=== PATIENT | female | born 1935 | race Caucasian/White ===

== ENCOUNTER 2019-02-09 05:40 | Inpatient (IN) ==
--- NOTE | 2019-01-25 10:27 | PAT Medication Instructions ---
Medication Instructions Date of Service January 25, 2019 Home Medications amlodipine [Norvasc] 5 mg PO QAM aspirin 325 mg PO QAM ergocalciferol (vitamin D2) [Vitamin D2] 50,000 unit PO MONTHLY isosorbide mononitrate 30 mg PO QAM metoprolol tartrate 50 mg PO HS metoprolol tartrate 100 mg PO QAM pantoprazole 40 mg PO QAM pravastatin 40 mg PO HS Continue as directed ergocalciferol (vitamin D2) [Vitamin D2] 50,000 unit PO MONTHLY ASK your prescriber and surgeon aspirin 325 mg PO QAM Take morning of surgery With a small sip of water, OTHERWISE NOTHING TO EAT OR DRINK AFTER MIDNIGHT: amlodipine [Norvasc] 5 mg PO QAM isosorbide mononitrate 30 mg PO QAM metoprolol tartrate 100 mg PO QAM pantoprazole 40 mg PO QAM Take evening before surgery metoprolol tartrate 50 mg PO HS pravastatin 40 mg PO HS Other Notes If you have any questions please call us at [phone] or [phone] or [phone] or [phone]
--- NOTE | 2019-01-26 10:01 | Anesthesiology Consultation ---
Date of Service January 26, 2019 Assessment & Plan (1) Encounter for pre-operative examination: - Awaiting review preop testing (labs, CXR). - Awaiting most recent cardiology office visit note (Dr. Mondragon). - ASA 325mg instructions per surgeon/cardiology. Chart Review Chart Review: Pending: Refer to Additional Notes / Consult section and Patient seen in Pre Admission Testing Consults Requested awaiting cardiac note Teaching & Discussion Pre-Anesthesia Teaching/Discussion Notes: Instructed NPO after midnight before surgery,except medications with 15 cc of water. Medication instructions provided according to the PAT guidelines. History Surgery Operation Date: 02/09/19 09:05 Proposed Procedures p C5-C6 Anterior Cervical Discectomy Fusion, C4 Corpectomy, Spinal Cord Monitoring - Dwayne Martines, Height/Weight Height: 5 ft 2 in Weight: 52.9 kg Allergies Allergy/AdvReac Type Severity Reaction Status Date / Time ampicillin Allergy Severe Hives Verified 01/25/19 08:44 ciprofloxacin [From Cipro] Allergy Severe Hives Verified 01/25/19 08:44 simvastatin [From Zocor] AdvReac Intermediate muscle Verified 01/25/19 08:44 rigidity/pain Medications Home Medications Medication Instructions Recorded Confirmed Last Taken amlodipine [Norvasc] 5 mg PO QAM 01/25/19 01/25/19 Unknown aspirin 325 mg PO QAM 01/25/19 01/25/19 Unknown ergocalciferol (vitamin D2) 50,000 unit PO MONTHLY 01/25/19 01/25/19 Unknown [Vitamin D2] isosorbide mononitrate 30 mg PO QAM 01/25/19 01/25/19 Unknown metoprolol tartrate 50 mg PO HS 01/25/19 01/25/19 Unknown metoprolol tartrate 100 mg PO QAM 01/25/19 01/25/19 Unknown pantoprazole 40 mg PO QAM 01/25/19 01/25/19 Unknown pravastatin 40 mg PO HS 01/25/19 01/25/19 Unknown Past Medical History Medical History Aortic stenosis "mild" per 11/2018 ECHO (MATY 1.8cm2, MG 11mmhg) CAD (coronary artery disease) stent x 1 to RCA (1997) Chronic neck pain Degenerative disc disease Diverticular disease GERD (gastroesophageal reflux disease) controlled Hearing deficit Hyperlipidemia Hypertension Myocardial Infarction 1997 Osteoarthritis Exercise / Class Metabolic Activity III < 4 Walking/Shop/Light housework Past Family History Family History Sister Family hx of colon cancer Past Surgical History Surgical History History of adenoidectomy History of appendectomy History of bilateral tubal ligation History of cardiac cath 1998= STENT x 1 History of cholecystectomy History of colonoscopy History of esophagogastroduodenoscopy (EGD) History of tonsillectomy Hx of lumpectomy bengin Left breast Past Anesthesia History No Hx of Anesthesia Complications and No Family Hx of Anesthesia Complications History of PONV No Hx of PONV and No Hx of Motion Sickness Social History Smoking Status: Former smoker tobacco type: cigarettes Do You Dip or Chew Tobacco: No Smoking End Date: Quit 1981 Hx Alcohol Use: Yes Alcohol type: wine alcohol intake frequency: 0-2 drinks per day (typically 1-2 glasses wine per day (occasional 3 drinks per day)) Hx Substance Use: No substance use type: does not use Review of Systems Reflux controlled. Patient denies chest pain, shortness of breath, cough, wheezing, palpitations. Physical Exam Vital Signs VITALS BP 156/72 P 68 TEMP 97.8 SP02 95%RA RESP 18 PHYSICAL Midly decreased cervical extension 2/2 cervicalgia Full TMJ range of motion. TMD 3 finger breaths Mallampati Score 2 Dentition: missing molars, caps on sides Lungs: diminished breath sounds in upper lung regions Cardiac: regular rate and rhythm, I-II/ systolic murmur Spine: normal Carotid arteries: negative bruit Extremities: no edema Testing Laboratory Results 01/26/19 10:14 01/26/19 10:14 PT 10.8 Seconds (9.0-12.0) 01/26/19 10:14 INR 1.1 (0.9-1.1) 01/26/19 10:14 APTT 26.3 Seconds (21.0-31.0) 01/26/19 10:14 Blood Type A Positive 01/26/19 10:14 Antibody Screen NEGATIVE 01/26/19 10:14 Electrocardiogram Date: 03/12/18 NSR at 80bpm. Possible LAE. Old inferior wall PR. Chest X-Ray Date: 01/26/19 Findings: + NAD (hyperinflation, suggestive of emphysema) Echocardiogram Date: 12/07/18 EF 60%. Grade I DD. Severe LAD. Moderate RAD. Moderate AR. Mild aortic stenosis (MATY 1.8cm2, MG 11mmhg). Moderate MR/TR. Moderately elevated PAP. Mild SC.
--- NOTE | 2019-01-26 10:52 | XRay Report ---
XR chest Pre-admission PA/Lat CLINICAL HISTORY: 83 years-old Female presenting with preoperative assessment. TECHNIQUE: PA and lateral views of the chest were obtained. COMPARISON: None. FINDINGS: Cardiomediastinal silhouette normal. Lungs are hyperinflated. No focal opacity. No pleural effusion o r pneumothorax. Osteopenia. Osteoporotic endplate deformities suspected. Upper abdomen normal. IMPRESSION: 1. Findings suggest emphysema. No focal infiltrate to suggest pneumonia. 2. Osteopenia and osteoporosis suspected. Electronically signed by: Rylan Bernstein M.D. 01/26/2019 10:50 AM
[2019-01-26 12:06] LABS: Basophils # (auto) 0.07 K/uL (0-0.2); Basophils % (auto) 0.6 %; Eosinophils # (auto) 0.08 K/uL (0-0.5); Eosinophils % (auto) 0.7 %; Hematocrit (blood only) 36.9 % (37-47); Hemoglobin 12.5 g/dL (12.0-16.0); Immature Granulocytes # (auto) 0.02 K/uL (0.00-0.02); Immature Granulocytes % (auto) 0.2 %; Lymphocytes % (auto) 20.4 %; Mean Corpuscular Hemoglobin 32.6 pg (25-34); Mean Corpuscular Hgb Conc 33.9 g/dL (32-36); Mean Corpuscular Volume 96.3 fL (80-100); Mean Platelet Volume 10.9 fL (7.4-10.4); Monocytes # (auto) 1.24 K/uL (0.11-0.59); Neutrophils # (auto) 7.56 K/uL (1.4-6.5); Neutrophils % (auto) 67.1 %; Platelet Count 312 K/uL (130-400); RDW Coefficient of Variation 14.5 % (11.5-14.5); RDW Standard Deviation 51.4 fL (36.4-46.3); Red Blood Count 3.83 M/uL (4.2-5.4); White Blood Count 11.27 K/uL (4.8-10.8)
[2019-01-26 12:16] LABS: BUN Creatinine Ratio 10.5 (10-20); Calcium 9.9 mg/dl (8.5-10.1); Creatinine Clr Calc Pharmacy 41.5 ml/min; Est GFR (African American) 75.5; Est GFR (Non-African American) 65.2; Potassium 4.2 mmol/L (3.5-5.1)
[2019-01-26 12:18] LABS: INR 1.1 (0.9-1.1); Partial Thromboplastin Time 26.3 Seconds (21.0-31.0); Prothrombin Time 10.8 Seconds (9.0-12.0)
[2019-02-09] MEDS ORDERED: CeleBREX 200 MG CAP PO SCH (06:00)
[2019-02-09] MEDS ORDERED: GABAPENTIN 300 MG CAP PO SCH (06:00)
[2019-02-09] MEDS ORDERED: LR 15ML/HR IV SCH (06:00)
[2019-02-09] MEDS ORDERED: ACETAMINOPHEN 500 MG TAB PO SCH (06:00)
[2019-02-09] MEDS ORDERED: CLINDAMYCIN 600 MG/54 ML BAG IV SCH (06:00)
[2019-02-09] MEDS ORDERED: dexAMETHasone 4 MG TAB PO SCH (06:00)
[2019-02-09] MEDS ORDERED: HYDROmorphone INJ 2 MG/ML SYR/VIAL ONE ×2 (06:46→10:01)
[2019-02-09] MEDS ORDERED: fentaNYL citrate 100 MCG/2 ML VIAL ONE ×4 (06:46→10:12)
[2019-02-09] MEDS ORDERED: PROPOFOL IV EMULSION 10 MG/ML 100 ML VIAL IV ONE (06:54)
[2019-02-09] MEDS ORDERED: BACITRACIN INJ 50,000 UNIT VIAL ONE (07:03)
--- NOTE | 2019-02-09 07:25 | History & Physical Bridge Note ---
Date of Service February 09, 2019 History & Physical Bridge Note I have examined the patient, reviewed the History & Physical and in the interval since the performance of the History & Physical I have noted the following changes of clinical significance: no changes noted
--- NOTE | 2019-02-09 07:26 | History & Physical Report ---
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 After failing extensive course of nonoperative care and having decline in neurologic status is electing to undergo the above-mentioned procedure. Allergies Allergy/AdvReac Type Severity Reaction Status Date / Time ampicillin Allergy Severe Hives Verified 02/09/19 06:20 ciprofloxacin [From Cipro] Allergy Severe Hives Verified 02/09/19 06:20 simvastatin [From Zocor] AdvReac Intermediate muscle Verified 02/09/19 06:20 rigidity/pain Home Medications Home Medications Medication Instructions Recorded Confirmed Type amlodipine [Norvasc] 5 mg PO QAM 01/25/19 02/09/19 History aspirin 325 mg PO QAM 01/25/19 02/09/19 History ergocalciferol (vitamin D2) 50,000 unit PO MONTHLY 01/25/19 02/09/19 History [Vitamin D2] isosorbide mononitrate 30 mg PO QAM 01/25/19 02/09/19 History metoprolol tartrate 50 mg PO HS 01/25/19 02/09/19 History metoprolol tartrate 100 mg PO QAM 01/25/19 02/09/19 History pantoprazole 40 mg PO QAM 01/25/19 02/09/19 History pravastatin 40 mg PO HS 01/25/19 02/09/19 History Past Med/Surg History Family History Sister Family hx of colon cancer Social History Preferred Language: Lithuanian Communication Ability: Effective Aircraft Mechanic Required: No Beliefs That Will Affect Care: None Current Living Situation: Spouse Other Information That Helps Us Care for You: No Feels Safe at Home: Yes Safety Concerns: Feels Safe At This Time Smoking Status: Former smoker Tobacco Type: cigarettes ; Do You Dip or Chew Tobacco: No ; Smoking End Date: Quit 1981 ; Second Hand Exposure: Yes (hx) ; Tobacco Cessation Education Requested by Patient: No Hx Alcohol Use: Yes Alcohol type: wine Hx Substance Use: No Physical Exam Physical Exam: Patient is alert and oriented neurologically intact. Results & Data Vital Signs (Past 12 Hours) Vital Signs Temp Pulse Resp BP Pulse Ox 02/09/19 06:24 36.6 C 70 20 157/75 H 96
[2019-02-09] MEDS ORDERED: PROMETHAZINE HCL 12.5 MG in SODIUM CHLORIDE 0.9% 50 ML IV PRN ×2 (08:41→12:09)
[2019-02-09] MEDS ORDERED: FLUMAZENIL 0.1 MG/1 ML 10 ML VIAL IV PRN (08:41)
[2019-02-09] MEDS ORDERED: ePHEDrine sulfate 50 MG/ML AMP IV PRN (08:41)
[2019-02-09] MEDS ORDERED: NALOXONE HCL 0.4 MG/1 ML VIAL/CARP IV PRN ×2 (08:41→12:09)
[2019-02-09] MEDS ORDERED: ONDANSETRON INJ 2 MG/ML 2 ML VIAL IV PRN ×2 (08:41→12:09)
[2019-02-09] MEDS ORDERED: ATROPINE SULFATE 0.1 MG/ML 10ML SYR IV PRN (08:41)
[2019-02-09] MEDS ORDERED: LABETALOL HCL IV 5 MG/ML 20ML IV PRN (08:41)
[2019-02-09] MEDS ORDERED: ESMOLOL HCL INJ 10 MG/ML 10ML VIAL IV ONE (09:20)
[2019-02-09] MEDS ORDERED: PHENYLEPHRINE 100MCG/ML 5ML SYR ONE (09:20)
[2019-02-09] MEDS ORDERED: PROPOFOL IV EMULSION 10 MG/ML 20 ML VIAL IV ONE (09:20)
[2019-02-09] MEDS ORDERED: ePHEDrine sulfate 50 MG/ML SYR ONE (09:20)
[2019-02-09] MEDS ORDERED: SUCCINYLCHOLINE 100MG/5ML SYR ONE (09:20)
[2019-02-09] MEDS ORDERED: ONDANSETRON INJ 2 MG/ML 2 ML VIAL ONE (09:20)
[2019-02-09] MEDS ORDERED: LARYING-O-JET KIT (LTA) ONE (09:20)
[2019-02-09] MEDS ORDERED: LIDOCAINE HCL 2% 2 ML VIAL/AMP(20MG/ML) INFIL ONE (09:20)
[2019-02-09] MEDS ORDERED: ROCURONIUM BROMIDE 10 MG/ML 5 ML VIAL ONE (09:20)
[2019-02-09] MEDS ORDERED: NEOSTIGMINE METHYLSULFATE 5 MG/5 ML SYR ONE (09:20)
[2019-02-09] MEDS ORDERED: DEXAMETHASONE SOD INJ 4 MG/ML VIAL ONE (09:20)
[2019-02-09] MEDS ORDERED: GLYCOPYRROLATE 0.2 MG/ML VIAL ONE (09:20)
--- NOTE | 2019-02-09 09:55 | Operative Report ---
Post Operative Report Pre & Post Diagnosis Operation Date: 02/09/19 07:45 Pre-Op Diagnosis: Cervical spinal stenosis with myelopathy Post-Op Diagnosis: Same I identified the patient and participated in the time-out.: Yes Procedure Operation Date: 02/09/19 07:45 Actual Procedures #1 anterior cervical corpectomy with bilateral foraminotomies C4. #2 anterior cervical discectomy with bilateral foraminotomies C5-6. #3 anterior cervical arthrodesis C3-C5 and C5-C6. #4 placement of peek cage 25 mm in height C3-C5 and 7 mm in height at C5-C6. #5 placement locally harvested morselized autograft combined with DBM and interbody cages. #6 application of cobb plate and screws from C3-C6. Surgeon Dwayne Martines, Polygraph Examiner Vera Petersen Estimated Blood Loss 150 Findings Consistent with Post-Op Diagnosis Specimens None Indications This is a 83-year-old female who presents with above-mentioned diagnosis with her continuing neurologic decline elected to undergo the above-mentioned procedure. Description of Procedure Patient was met with identified and informed consent obtained. Patient was then taken to the operative suite underwent ablation placed in supine position the Curtis table with head Swanson head porter baggage. All bony prominences well-padded eyes inspected to ensure no external pressure placed upon. This point the anterior cervical spine was prepped and draped in a sterile fashion. Sharp dissection with the assistance of bipolar electrocautery was performed on August exposing the anterior cervical spine from C3-C6. Verified my position with fluoroscopy. A complete discectomy of C3-4 was performed out to the uncovertebral joints bilaterally followed by see 4 5. [place] distracting pins were then placed in C3 and C5 distract across the C4 vertebral body. A complete corpectomy was then performed including removal of all posterior annular fibers and longitudinal ligament and bilateral foraminotomies. Endplates were then burred to subcortical bleeding bone and a 25 mm peek cage filled with local autograft and DBM tapped in position. Then proceeded to C5-6. Again complete discectomy performed out to the uncovertebral joints bilaterally. [place] distracting pins again utilized. Perform bilateral foraminotomies and endplates were then burred to subcortical being bone and a 7 mm peek cage filled with local autograft and DBM tapped in position. Distraction apparatus was removed all anterior osteophytes burred with smooth cortical surface and a cobb plate and screws applied with the assistance of fluoroscopy. Incision was then cut was irrigated explored to ensure no demonstrate surrounding structures remaining bleeding. 10 round GREG drain inserted. The incision was then closed with 2 Vicryl in the fashion of 4 Monocryl for final skin closure. Steri-Strip sterile dressings placed. Patient awakened taken to PACU stable condition. Please note spinal cord monitoring was utilized that the procedure no changes noted. Lastly Vera Petersen was present on the entire procedure involved the patient positioning complex portions of the surgery and final skin closure. I attest to the content of the Intraoperative Record and any orders documented therein. Any exceptions are noted below.
[2019-02-09] MEDS ORDERED: FLOSEAL HEMOSTATIC MATRIX 10ML TOP ONE (09:58)
--- NOTE | 2019-02-09 10:50 | Fluoroscopy Report ---
FL cervical 2-3V CLINICAL HISTORY: ACDF C5-C6 AND CORPECTOMY C4 COMPARISON STUDY: None FLUOROSCOPY TIME: 8 seconds NUMBER OF FLUOROSCOPIC IMAGES: 2 FINDINGS: Findings consistent with anterior cervical fusion and corpectomy identified from C3 through C6. Alignment appears anatomic. IMPRESSION: Image intensifier support for an anterior cervical fusion and corpectomy The above report was generated using voice recognition software. It may contain grammatical, syntax or spelling errors. Electronically signed by: Sim Gruber M.D. 02/09/2019 10:49 AM
--- NOTE | 2019-02-09 11:12 | Anesthesiology Progress Note ---
Date of Service February 09, 2019 Anesthesia Post Procedure Vital Signs Vital Signs: Temp Pulse Pulse Resp BP Pulse Ox 02/09/19 11:05 36.4 C L 63 13 139/61 98 02/09/19 10:55 36.6 C 70 18 141/70 H 98 02/09/19 10:45 36.2 C L 73 21 149/69 H 98 02/09/19 10:35 36.2 C L 73 18 157/78 H 98 02/09/19 10:25 36.2 C L 75 14 163/74 H 99 02/09/19 10:15 36.2 C L 80 17 163/74 H 98 02/09/19 10:09 36.2 C L 81 16 146/83 H 97 02/09/19 06:24 36.6 C 70 20 157/75 H 96 Pain Intensity Lower Neck: Pain Intensity: 0 Transfer of Care Handoff Completed per policy Notes Mental Status: alert / awake / arousable Patient Amnestic to Procedure: Yes Nausea / Vomiting: adequately controlled Pain: adequately controlled Airway Patency, RR, SpO2: stable & adequate BP & HR: stable & adequate Hydration State: stable & adequate Anesthetic Complications: no major complications apparent
[2019-02-09] MEDS: fentaNYL citrate 100 MCG/2 ML VIAL IV PRN ×2 (11:21→11:26)
[2019-02-09] MEDS ORDERED: OXYCODONE HCL IR 5 MG TAB (IMMEDIATE RELEASE) PO PRN (12:09)
[2019-02-09] MEDS ORDERED: DO NOT ADMINISTER FLU VACCINE PRN (12:09)
[2019-02-09] MEDS ORDERED: LORazepam 0.5 MG TAB PO PRN (12:09)
[2019-02-09] MEDS ORDERED: ONDANSETRON 4 MG OD TAB PO PRN (12:09)
[2019-02-09] MEDS ORDERED: ACETAMINOPHEN 1,000 MG/100 ML VIAL IV PRN (12:09)
[2019-02-09] MEDS ORDERED: ACETAMINOPHEN 500 MG TAB PO PRN (12:09)
[2019-02-09] MEDS ORDERED: LORazepam 0.5 MG/1 ML VIAL IV PRN (12:09)
[2019-02-09] MEDS ORDERED: SOD PHOSPHATE/SOD BIPHOSPHATE ENEMA 132 ML BTL PR PRN (12:09)
[2019-02-09] MEDS ORDERED: HYDROmorphone INJ 0.5 MG/0.5 ML SYR IV PRN (12:09)
[2019-02-09] MEDS ORDERED: DEXAMETHASONE SOD PHOSPHATE 8 MG in SYRINGE 0 ML IV PRN (12:09)
[2019-02-09] MEDS ORDERED: RACEPINEPHRINE 2.25% NEBU SOLN 0.5 ML VIAL INH PRN (12:09)
[2019-02-09] MEDS ORDERED: MAGNESIUM HYDROXIDE SUSP 30 ML UDC PO PRN (12:09)
[2019-02-09] MEDS ORDERED: HYDROmorphone INJ 1 MG/ML SYRINGE IV PRN (12:09)
[2019-02-09] MEDS ORDERED: ALUMINUM/MAGNESIUM SUSP 30 ML UDC PO PRN (12:09)
[2019-02-09] MEDS ORDERED: METOCLOPRAMIDE HCL INJ 5 MG/ML 2 ML VIAL IV PRN (12:09)
[2019-02-09] MEDS ORDERED: FAMOTIDINE 20 MG TAB PO PRN (12:09)
[2019-02-09] MEDS ORDERED: DO NOT ADMINISTER PNEUMOCOCCAL VACCINE PRN (12:09)
[2019-02-09] MEDS ORDERED: TRAMADOL HCL 50 MG TABLET PO PRN (12:09)
--- NOTE | 2019-02-09 13:36 | Consultation ---
Date of Consultation February 09, 2019 Assessment & Plan (1) S/P cervical spinal fusion: Post op day# 0 S/P ACDF by Dr Martines EBL #150ml Post op without dysphagia -pain management per ortho -wound management per ortho -PT/OT as appropriate -DVT prophylaxis per ortho -monitor H&H for acute blood loss anemia; pre-op Hb.5 (2) CAD (coronary artery disease): S/P stent to RCA in 1997. Follows with Dr Mondragon in [place] No CP, SOB -Continue aspirin, metoprolol, isosorbide, statin (3) Hypertension: Stable -Continue metoprolol, amlodipine (4) Hyperlipidemia: -Continue statin (5) GERD (gastroesophageal reflux disease): -Continue PPI DVT Prophylaxis -SCDs per ortho Follows with Dr Sim Acosta in [place] for routine care Pt was seen and care coordinated with Dr Ocasio See addendum Pt will be followed by Dr Buitrago starting 02/10/19 Thank you for this consultation. We will follow the patient with you during their hospital stay. You can reach a member of the [facility] Hospitalist Team 14/10 via pager @ [phone]. Supervising Physician Co-Signing Physician Notes Attending addendum: The patient was seen and examined in medical floor She is 83 years old with history of CAD status post stent denies centimeters, hypertension, hyperlipidemia and GERD underwent ACDF by Dr. 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 Post op pt reports some mild neck pain. Denies difficulty or pain swallowing saliva. Reports still has some paresthesias bilateral hands/fingers. Denies nausea or vomiting. Denies fever/chills, diaphoresis, MAS, dizziness, vision changes, CP, SOB, palpitations, cough, choking, abdominal pain, extremity weakness, extremity edema, rashes, urinary symptoms. Allergies Allergy/AdvReac Type Severity Reaction Status Date / Time ampicillin Allergy Severe Hives Verified 02/09/19 06:20 ciprofloxacin [From Cipro] Allergy Severe Hives Verified 02/09/19 06:20 simvastatin [From Zocor] AdvReac Intermediate muscle Verified 02/09/19 06:20 rigidity/pain Home Medications Home Medications Medication Instructions Recorded Confirmed Type amlodipine [Norvasc] 5 mg PO QAM 01/25/19 02/09/19 History aspirin 325 mg PO QAM 01/25/19 02/09/19 History ergocalciferol (vitamin D2) 50,000 unit PO MONTHLY 01/25/19 02/09/19 History [Vitamin D2] isosorbide mononitrate 30 mg PO QAM 01/25/19 02/09/19 History metoprolol tartrate 50 mg PO HS 01/25/19 02/09/19 History metoprolol tartrate 100 mg PO QAM 01/25/19 02/09/19 History pantoprazole 40 mg PO QAM 01/25/19 02/09/19 History pravastatin 40 mg PO HS 01/25/19 02/09/19 History tramadol 50 mg PO Q6H PRN #30 tab 02/09/19 Rx Patient History Medical History Aortic stenosis "mild" per 11/2018 ECHO (MATY 1.8cm2, MG 11mmhg) CAD (coronary artery disease) stent x 1 to RCA (1997) Chronic neck pain Degenerative disc disease Diverticular disease GERD (gastroesophageal reflux disease) controlled Hearing deficit Hyperlipidemia Hypertension Myocardial Infarction 1997 Osteoarthritis Surgical History History of appendectomy History of bilateral tubal ligation History of cardiac cath 1998= STENT x 1 History of cholecystectomy History of colonoscopy History of esophagogastroduodenoscopy (EGD) History of tonsillectomy Hx of lumpectomy bengin Left breast Family History Sister Family hx of colon cancer Social History Preferred Language: Chinese Communication Ability: Effective Life Coach Required: No Beliefs That Will Affect Care: None Current Living Situation: Spouse Other Information That Helps Us Care for You: No Feels Safe at Home: Yes Safety Concerns: Feels Safe At This Time Smoking Status: Former smoker Tobacco Type: cigarettes ; Do You Dip or Chew Tobacco: No ; Smoking End Date: Quit 1981 ; Second Hand Exposure: Yes (hx) ; Tobacco Cessation Education Requested by Patient: No Hx Alcohol Use: Yes Alcohol type: wine Hx Substance Use: No Review of Systems Review of Systems: All systems reviewed & are unremarkable except as noted in HPI & below Physical Exam Physical Exam: General: no distress, WDWN Head: normocephalic, atraumatic Eyes: PERRL, EOM's intact, conjunctiva non-injected, anicteric ENT: normal inspection external ears, nose, mucous membranes mildly dry Neck: trachea midline, c-collar in place, dressing intact and dry, drain in place with serosanguineous drainage Lungs: clear, no respiratory distress, no wheezing/rhonchi/rales CV: RRR, systolic murmur, no pretibial edema Abd: normal BS, soft, non-tender Ext: no cyanosis, no calf tenderness; sensation to light touch upper and lower extremities intact, distal pulses upper and lower extremities intact Neuro: A&O x 3, no focal deficits noted, normal affect Skin: warm, dry Results & Data Vital Signs (Past 12 Hours) Vital Signs Temp Pulse Pulse Pulse Resp BP Pulse Ox 02/09/19 12:58 36.5 C 67 16 125/70 97 02/09/19 12:29 69 17 152/72 H 97 02/09/19 11:55 36.5 C 64 16 145/69 H 97 02/09/19 11:45 36.4 C L 74 15 147/65 H 98 02/09/19 11:35 36.4 C L 64 14 135/56 L 97 02/09/19 11:25 36.4 C L 58 L 16 125/48 L 98 02/09/19 11:15 36.4 C L 66 17 135/87 99 02/09/19 11:05 36.4 C L 63 13 139/61 98 02/09/19 10:55 36.6 C 70 18 141/70 H 98 02/09/19 10:45 36.2 C L 73 21 149/69 H 98 02/09/19 10:35 36.2 C L 73 18 157/78 H 98 02/09/19 10:25 36.2 C L 75 14 163/74 H 99 02/09/19 10:15 36.2 C L 80 17 163/74 H 98 02/09/19 10:09 36.2 C L 81 16 146/83 H 97 02/09/19 06:24 36.6 C 70 20 157/75 H 96
[2019-02-09] MEDS: SODIUM CHLORIDE 0.9% 1000ML 1,000 ML IV SCH (15:34)
[2019-02-09] MEDS: CLINDAMYCIN 600 MG in DEXTROSE 5% 50 ML IV SCH ×2 (15:34→23:16)
[2019-02-09] MEDS: PRAVASTATIN SOD 40 MG TAB PO SCH (21:02)
[2019-02-09] MEDS: DOCUSATE SODIUM/SENNA 50/8.6MG TAB PO SCH (21:02)
[2019-02-09] MEDS: METOPROLOL TARTRATE 50 MG TAB PO SCH (21:03)
[2019-02-10] MEDS: SODIUM CHLORIDE 0.9% 1000ML 1,000 ML IV SCH (01:10)
[2019-02-10 05:43] LABS: Hemoglobin 10.7 g/dL (12.0-16.0); Mean Corpuscular Hemoglobin 32.2 pg (25-34); Mean Corpuscular Hgb Conc 33.4 g/dL (32-36); Mean Corpuscular Volume 96.4 fL (80-100); Mean Platelet Volume 11.1 fL (7.4-10.4); Platelet Count 281 K/uL (130-400); RDW Coefficient of Variation 14.3 % (11.5-14.5); RDW Standard Deviation 50.3 fL (36.4-46.3); Red Blood Count 3.32 M/uL (4.2-5.4); White Blood Count 13.86 K/uL (4.8-10.8)
[2019-02-10 06:15] LABS: BUN Creatinine Ratio 15.8 (10-20); Calcium 8.6 mg/dl (8.5-10.1); Creatinine Clr Calc Pharmacy 49.9 ml/min; Est GFR (African American) 94.2; Est GFR (Non-African American) 81.3
[2019-02-10] MEDS: ISOSORBIDE MONO EXTENDED REL 30 MG TABCR PO SCH (08:03)
[2019-02-10] MEDS: PANTOprazole 40 MG TAB PO SCH (08:03)
[2019-02-10] MEDS: AMLODIPINE BESYLATE 5 MG TAB PO SCH (08:03)
[2019-02-10] MEDS: METOPROLOL TARTRATE 100 MG TAB PO SCH (08:03)
[2019-02-10] MEDS: ASPIRIN 325 MG ECTAB PO SCH (08:03)
--- NOTE | 2019-02-10 09:03 | Hospitalist Progress Note ---
Date of Service February 10, 2019 Assessment & Plan (1) S/P cervical spinal fusion: Post op day# 1 S/P ACDF C5-C6 by Dr Martines EBL #150ml Total GREG drain output #55ml Post op doing well, pain controlled, no dysphagia -pain management per ortho -wound management per ortho -PT/OT as appropriate -DVT prophylaxis per ortho -Hgb: 10.7 from Hb.5 pre-op. Monitor H&H (2) CAD (coronary artery disease): S/P stent to RCA in 1997. Follows with Dr Mondragon in [place] No CP, SOB -Continue aspirin, metoprolol, isosorbide, statin (3) Hypertension: Stable -Continue metoprolol, amlodipine (4) Hyperlipidemia: -Continue statin (5) GERD (gastroesophageal reflux disease): -Continue PPI DVT Prophylaxis -SCDs per ortho Follows with Dr Sim Acosta in [place] for routine care Pt was seen and care coordinated with Dr Buitrago. See addendum Subjective Pt seen and examined. Sitting up in bed with c-collar on. Reports ate sherbet, broth and a little jello for breakfast without any dysphagia or choking. Reports has less hand/finger paresthesias then prior to surgery. Feels like strength in her hands has improved prior to surgery. States pain well controlled. Denies nausea or vomiting. Reports passing flatus. Urinating without difficulty. Denies fever/chills, diaphoresis, MAS, dizziness, CP, SOB, palpitations, cough, abdominal pain, extremity weakness, extremity edema, rashes, urinary symptoms. Review of Systems Review of Systems: All systems reviewed & are unremarkable except as noted in HPI & below Physical Exam Physical Exam: General: no acute distress, WDWN Head: normocephalic, atraumatic Eyes:conjunctiva non-injected, anicteric ENT: normal inspection external ears, nose, mucous membranes moist Neck: C-collar in place, trachea midline, anterior neck dressing intact and dry, GREG drain intact with serosanguineous drainage Lungs: clear, no respiratory distress, no wheezing/rhonchi/rales CV: RRR, systolic murmur, no pretibial edema Abd: normal BS, soft, non-tender Ext: no cyanosis, no calf tenderness; bilateral upper and lower extremity distal pulses intact, sensation to light touch intact, bilateral primary health organisation manager strength equal Neuro: A&O x 3, no focal deficits noted, normal affect Skin: warm, dry Results & Data Vital Signs (Past 12 Hours) Vital Signs Temp Pulse Pulse Resp BP Pulse Ox 02/10/19 08:06 36.6 C 74 16 121/66 95 02/10/19 07:32 82 18 97 02/10/19 06:42 36.6 C 90 15 138/70 96 02/10/19 05:10 36.5 C 77 16 126/65 98 02/10/19 03:00 36.6 C 80 16 130/71 97 02/10/19 02:55 81 16 95 02/10/19 01:09 36.4 C L 84 15 128/85 97 02/09/19 23:00 76 16 95 02/09/19 22:58 36.3 C L 71 15 138/70 96 Laboratory Results Short CBC 01/26/19 02/10/19 02/10/19 Range/Units 10:14 04:38 04:38 WBC 13.86 H (4.8-10.8) K/uL Hgb 10.7 L (12.0-16.0) g/dL Hct 32.0 L (37-47) % Plt Count 281 (130-400) K/uL Sodium 133 L 134 L (136-145) mmol/L Creatinine 0.84 0.70 (0.6-1.2) mg/dl [facility] 02/10/19 04:38 Sodium 134 L Potassium 4.0 Chloride 101 Carbon Dioxide 26 BUN 11 Creatinine 0.70 Glucose 127 H Calcium 8.6
--- NOTE | 2019-02-10 09:15 | Orthopedic Progress Note ---
Date of Service February 10, 2019 Assessment & Plan (1) Myelopathy concurrent with and due to spinal stenosis of cervical region: This time the patient is doing quite well. However GREG drain is still putting out a significant amount of fluid. I would like to maintain the GREG drain another 24 hours and anticipate discharge home tomorrow. Present on Admission?: Yes Subjective Patient is swallowing well no hoarseness. She feels her arm symptoms are improved. Physical Exam Physical Exam: Patient is good strength testing. Appears comfortable. Results & Data Vital Signs (Past 12 Hours) Vital Signs Temp Pulse Pulse Resp BP Pulse Ox 02/10/19 08:06 36.6 C 74 16 121/66 95 02/10/19 07:32 82 18 97 02/10/19 06:42 36.6 C 90 15 138/70 96 02/10/19 05:10 36.5 C 77 16 126/65 98 02/10/19 03:00 36.6 C 80 16 130/71 97 02/10/19 02:55 81 16 95 02/10/19 01:09 36.4 C L 84 15 128/85 97 02/09/19 23:00 76 16 95 02/09/19 22:58 36.3 C L 71 15 138/70 96
[2019-02-10] MEDS: POLYETHYLENE (MIRALAX) 17 GM PACK PO SCH ×3 (12:32→23:48)
[2019-02-10] MEDS: METOPROLOL TARTRATE 50 MG TAB PO SCH (20:17)
[2019-02-10] MEDS: DOCUSATE SODIUM/SENNA 50/8.6MG TAB PO SCH (20:17)
[2019-02-10] MEDS: PRAVASTATIN SOD 40 MG TAB PO SCH (20:17)
[2019-02-11 05:43] LABS: Hematocrit (blood only) 32.5 % (37-47); Hemoglobin 10.8 g/dL (12.0-16.0); Mean Corpuscular Hemoglobin 32.9 pg (25-34); Mean Corpuscular Hgb Conc 33.2 g/dL (32-36); Mean Corpuscular Volume 99.1 fL (80-100); Platelet Count 251 K/uL (130-400); RDW Coefficient of Variation 14.7 % (11.5-14.5); RDW Standard Deviation 53.9 fL (36.4-46.3); Red Blood Count 3.28 M/uL (4.2-5.4); White Blood Count 10.18 K/uL (4.8-10.8)
[2019-02-11 06:20] LABS: BUN Creatinine Ratio 13.4 (10-20); Creatinine Clr Calc Pharmacy 52.1 ml/min; Est GFR (African American) 95.5; Est GFR (Non-African American) 82.4; Potassium 3.5 mmol/L (3.5-5.1)
[2019-02-11] MEDS: PANTOprazole 40 MG TAB PO SCH (07:57)
[2019-02-11] MEDS: AMLODIPINE BESYLATE 5 MG TAB PO SCH (07:57)
[2019-02-11] MEDS: ISOSORBIDE MONO EXTENDED REL 30 MG TABCR PO SCH (07:57)
[2019-02-11] MEDS: METOPROLOL TARTRATE 100 MG TAB PO SCH (07:57)
[2019-02-11] MEDS: ASPIRIN 325 MG ECTAB PO SCH (07:58)
[2019-02-11] MEDS ORDERED: BISACODYL 10 MG SUPP PR PRN (09:56)
--- NOTE | 2019-02-11 10:59 | Hospitalist Progress Note ---
Date of Service February 11, 2019 Assessment & Plan (1) S/P cervical spinal fusion: Post op day2 1 S/P ACDF C5-C6 by Dr Martines EBL 150ml; Total GREG drain 95ml Post op doing well, pain controlled, no dysphagia pain management per ortho wound management per ortho PT/OT as appropriate DVT prophylaxis per ortho Hgb: 10.8 from Hb.5 pre-op. (2) CAD (coronary artery disease): S/P stent to RCA in 1997. Follows with Dr Mondragon in [place] No CP, SOB Continue aspirin, metoprolol, isosorbide, statin (3) Hypertension: blood pressure stable Continue metoprolol, amlodipine (4) Hyperlipidemia: Continue statin (5) GERD (gastroesophageal reflux disease): Continue PPI DVT Prophylaxis SCDs per ortho Follows with Dr Sim Acosta in [place] for routine care Pt was seen and care coordinated with Dr Buitrago. See addendum Thank you for this consultation. We will follow the patient with you during their hospital stay. You can reach a member of the [facility] Hospitalist Team 14/10 via pager @ [phone]. Subjective Patient was seen and examined in room 302-1 Follow up ACDF by Dr. Martines. Patient doing well today. Offers no acute concerns/complaints. "I think I am going home today." Daughter and Spouse at bedside. Denies f/c/s, dizziness, ligh theaded, chest pain, sob, n/v/d. Had 3 BM this morning after using Miralax. Tolerating diet and no difficulty. Walking to and from bathroom without difficulty. Review of Systems Review of Systems: All systems reviewed & are unremarkable except as noted in HPI & below Physical Exam Physical Exam: Gen: WD/WN, Elderly, F, sitting up in bed, NAD, A&O x3 HEENT: Normocephalic, atraumatic, conjunctivae moist, sclerae anicteric, mucous membranes moist. NECK: C collar in place, dressing CDI, GREG drain with serosanguineous drainage Lung: Clear to Auscultation bilaterally, no wheezes/rales/rhonchi Heart: Regular rate, regular rhythm, 1/6 GIOVANNA noted cardiac apex, no rubs, or gallops Abdomen: Soft, NT, ND +BS x 4 Extremities: No edema, b/l teds in place Skin: Warm, no rash, negative turgor. Results & Data Vital Signs (Past 12 Hours) Vital Signs Temp Pulse Pulse Resp BP Pulse Ox 02/11/19 07:58 152/63 H 02/11/19 07:20 36.5 C 88 16 176/77 H 94 02/11/19 06:59 82 14 94 02/11/19 04:17 36.5 C 83 15 121/69 02/11/19 03:38 72 17 95 02/11/19 00:18 36.5 C 73 15 148/75 H 95 02/10/19 23:58 68 16 96 Laboratory Results Short CBC 02/11/19 Range/Units 05:20 WBC 10.18 (4.8-10.8) K/uL Hgb 10.8 L (12.0-16.0) g/dL Hct 32.5 L (37-47) % Plt Count 251 (130-400) K/uL BMP 02/11/19 05:20 Sodium 139 Potassium 3.5 Chloride 105 Carbon Dioxide 28 BUN 9 Creatinine 0.67 Glucose 101 H Calcium 9.0 Medications Administered Amlodipine Besylate (Norvasc) 5 mg PO [facility] Stop: 03/12/19 08:59 Last Admin: 02/11/19 07:57 Dose: 5 mg Documented by: [id number] Admin: 02/10/19 08:03 Dose: 5 mg Documented by: [id number] Aspirin (Ecotrin) 325 mg PO [facility] Stop: 03/12/19 08:59 Last Admin: 02/11/19 07:58 Dose: 325 mg Documented by: [id number] Admin: 02/10/19 08:03 Dose: 325 mg Documented by: [id number] Isosorbide Mononitrate (Imdur Extended Rel) 30 mg PO [facility] Stop: 03/12/19 08:59 Last Admin: 02/11/19 07:57 Dose: 30 mg Documented by: [id number] Admin: 02/10/19 08:03 Dose: 30 mg Documented by: [id number] Metoprolol Tartrate (Lopressor) 50 mg PO [facility] Stop: 03/11/19 20:59 Last Admin: 02/10/19 20:17 Dose: 50 mg Documented by: [id number] Admin: 02/09/19 21:03 Dose: 50 mg Documented by: [id number] Metoprolol Tartrate (Lopressor) 100 mg PO [facility] Stop: 03/12/19 08:59 Last Admin: 02/11/19 07:57 Dose: 100 mg Documented by: [id number] Admin: 02/10/19 08:03 Dose: 100 mg Documented by: [id number] Pantoprazole Sodium (Protonix) 40 mg PO [facility] Stop: 03/12/19 08:59 Last Admin: 02/11/19 07:57 Dose: 40 mg Documented by: [id number] Admin: 02/10/19 08:03 Dose: 40 mg Documented by: [id number] Pravastatin Sodium (Pravachol) 40 mg PO [facility] Stop: 03/11/19 20:59 Last Admin: 02/10/19 20:17 Dose: 40 mg Documented by: [id number] Admin: 02/09/19 21:02 Dose: 40 mg Documented by: [id number] Senna/Docusate Sodium (Senokot S) 2 tab PO [facility] Stop: 03/11/19 20:59 Last Admin: 02/10/19 20:17 Dose: 2 tab Documented by: [id number] Admin: 02/09/19 21:02 Dose: 2 tab Documented by: [id number] Discontinued Medications Acetaminophen (Tylenol) 1,000 mg PO PREOP [facility] Stop: 02/09/19 18:00 Last Admin: 02/09/19 06:53 Dose: 1,000 mg Documented by: [id number] Bacitracin (Bacitracin) Confirm Administered Dose 50,000 units .ROUTE .STK-MED ONE Stop: 02/09/19 07:04 Last Admin: 02/09/19 08:45 Dose: 50,000 units Documented by: [id number] Celecoxib (Celebrex) 200 mg PO PREOP [facility] Stop: 02/09/19 18:00 Last Admin: 02/09/19 06:53 Dose: 200 mg Documented by: [id number] Fentanyl Citrate (Fentanyl Citrate) 25 mcg IV Q5M PRN PRN Reason: PACU Use Only-Pain Stop: 02/09/19 13:41 Last Admin: 02/09/19 11:26 Dose: 25 mcg Documented by: [id number] Admin: 02/09/19 11:21 Dose: 25 mcg Documented by: [id number] Gabapentin (Neurontin) 300 mg PO PREOP [facility] Stop: 02/09/19 18:00 Last Admin: 02/09/19 06:53 Dose: 300 mg Documented by: [id number] Lactated Ringer's (Lr) 1,000 mls @ 15 mls/hr IV .Q24H [facility] Stop: 02/10/19 05:59 Last Infusion: 02/09/19 07:50 Dose: 0 mls/hr Documented by: [id number] Admin: 02/09/19 06:53 Dose: 15 mls/hr Documented by: [id number] Clindamycin Phosphate (Cleocin) 600 mg in 54 mls @ 100 mls/hr IV PREOP [facility] Stop: 02/10/19 05:59 Last Infusion: 02/09/19 12:46 Dose: 0 mls/hr Documented by: [id number] Admin: 02/09/19 00:00 Dose: 100 mls/hr Documented by: [id number] Sodium Chloride (Nss 1000ml) 1,000 mls @ 100 mls/hr IV .Q10H [facility] Stop: 03/11/19 12:08 Last Infusion: 02/10/19 05:25 Dose: 0 mls/hr Documented by: [id number] Admin: 02/10/19 01:10 Dose: 100 mls/hr Documented by: [id number] Infusion: 02/10/19 01:10 Dose: 100 mls/hr Documented by: [id number] Infusion: 02/09/19 23:49 Dose: 100 mls/hr Documented by: [id number] Infusion: 02/09/19 23:17 Dose: 0 mls/hr Documented by: [id number] Admin: 02/09/19 15:34 Dose: 100 mls/hr Documented by: [id number] Clindamycin Phosphate 600 mg/ (Dextrose) 54 mls @ 100 mls/hr IV Q8H [facility] Stop: 02/09/19 23:33 Last Infusion: 02/09/19 23:49 Dose: 0 mls/hr Documented by: [id number] Admin: 02/09/19 23:16 Dose: 100 mls/hr Documented by: [id number] Infusion: 02/09/19 16:45 Dose: 0 mls/hr Documented by: [id number] Admin: 02/09/19 15:34 Dose: 100 mls/hr Documented by: [id number] Miscellaneous (Floseal Hemostatic Matrix 10ml) 20 ml TOP ONCE ONE Stop: 02/09/19 09:59 Last Admin: 02/09/19 09:50 Dose: 10 ml Documented by: [id number] Polyethylene Glycol (Miralax Powder Packet) 17 gm PO Q6 [facility] Stop: 03/12/19 12:29 Last Admin: 02/10/19 23:48 Dose: 17 gm Documented by: [id number] Admin: 02/10/19 17:46 Dose: 17 gm Documented by: [id number] Admin: 02/10/19 12:32 Dose: 17 gm Documented by: [id number]
--- NOTE | 2019-02-11 15:29 | Discharge Summary ---
Date of Service February 11, 2019 Admission HPI Per Admitting Provider This is a 83-year-old female who presents with chronic persistent neck and bilateral arm pain. After failing extensive course of nonoperative care and having decline in neurologic status is electing to undergo the above-mentioned procedure. Principal Diagnosis Cervical spinal stenosis with myelopathy Discharge Data Allergies Allergy/AdvReac Type Severity Reaction Status Date / Time ampicillin Allergy Severe Hives Verified 02/09/19 06:20 ciprofloxacin [From Cipro] Allergy Severe Hives Verified 02/09/19 06:20 simvastatin [From Zocor] AdvReac Intermediate muscle Verified 02/09/19 06:20 rigidity/pain Consultations 02/09/19 12:09 Consult Hospitalist Routine Procedures Performed Operation Date: 02/09/19 07:45 Actual Procedures p C5-C6 Anterior Cervical Discectomy Fusion, C4 Corpectomy, Spinal Cord Monitoring(Not Applicable) - Dwayne Martines DO Ordered Studies 02/09/19 07:45 FL cervical 2-3V Routine FL fluoroscopy <1hr Routine Hospital Course (1) S/P cervical spinal fusion: Patient underwent anterior cervical corpectomy and ACDF tolerated as well as taken the orthopedic floor postoperative. Postop pain when her arm symptoms were improving. She is swallowing well and was able to increase her diet. Postop day #2 the GREG drain continue to decrease appropriately. Her symptoms continue to improve. She is swallowing well. No hoarseness. Was subsequently discharged home. Discharge orders instructions to be found chart for further review. Total Time Total Time Spent Total Time Spent (In Minutes): 30 minutes Discharge Plan Discharge Items Patient Disposition: Home - Self-Care Reason For Visit: Spinal Stenosis, Cervical Region Discharge Diagnosis: Cervical spinal stenosis with myelopathy Activity: As commented below Non-emergency contact: Primary Care Provider Call non-emergency contact if: you have any medication questions Follow-up/Referrals: Sim Acosta MD [Primary Care Provider] - Diet: Regular Addtl Attending Provider Instructions: ACTIVITY RECOMMENDATIONS: SELF CARE INSTRUCTIONS AFTER CERVICAL FUSIONS 1. No smoking. Smoking drastically decreases the chance of a solid fusion. 2. No bending, lifting more than 5 pounds, or twisting (roll like a log when turning in bed). 3. You may shower 3 days after surgery. Thoroughly dry wound. Do not soak in the tub. 4. Cervical collar: Must be worn at all times including sleeping. You may remove the brace only to bath, eat and if you are sitting in a recliner. 5. Please walk as much as you can for exercise. Gradually increase the distance that you walk as your endurance increases. SPECIAL CARE INSTRUCTIONS: VERY IMPORTANT TO READ AND REVIEW A. Do not take any anti-inflammatory medications (i.e. Indocin, Advil, Aspirin, Naprosyn, Aleve, Motrin, etc.) as these may inhibit the chance of a solid fusion. Tylenol is okay to take. B. Your surgical incision has been closed with a cosmetic suture under the skin that will dissolve in about 6 weeks. In 14 days, you can use a pair of clean scissors and cut the suture that is left outside of the skin at the ends of your incision. C. Complications are uncommon, but please contact us if you have any signs or symptoms of: 1. wound infection (fever higher than 102.5 degrees F, redness, separation of wound, drainage, or increasing pain from the incision) 2. blood clots in legs (pain, swelling, redness and warmth in legs) 3. urinary tract infection (fever higher than 102.5 degrees, burning upon urination or increased frequency of urination) 4. nerve problems (inability to walk on your toes or heels, numbness, loss of bowel or bladder control) 5. any other symptoms that concern you. D. Please call the office at if you have any concerns or questions about your operation or recovery. MANAGING PAIN AFTER SPINAL SURGERY 1. Narcotic medication is intended for short-term use and will be provided for surgical pain. Surgical pain usually lasts for a period of 4-6 weeks. Narcotic medication includes Percocet, Vicodin, Darvocet, Tylenol #3 or Lortab. 2. Longer-term pain is more appropriately treated with non-narcotic medication such as Tylenol ES. 3. Muscle spasm is not appropriately treated with narcotics. Muscle relaxers such as Soma, Flexeril or Skelaxin can be used along with Tylenol ES. 4. Remember that we all live with some "aches and pains". This is not unusual or uncommon after an injury or as we get older. 5. We will provide appropriate medication within the normal guidelines of their prescribed use. We will also be very cautious and aware of potential abuse and extended duration of patients' medication needs. 6. Please allow 2-3 days to process refills. Prescriptions will not be mailed but must be picked up at the office. FOLLOW UP VISIT: Keep your scheduled follow-up appointment. Any questions, please call the office at . Pending Studies at Discharge: No Stand-Alone Forms: My [facility] [employer], Smoking Cessation Medications and DC Order Prescriptions: New tramadol 50 mg tablet 50 mg PO Q6H PRN (Reason: pain, moderate) Qty: 30 RF: 0 Continued aspirin 325 mg Tablet 325 mg PO QAM RF: 0 pravastatin 40 mg Tablet 40 mg PO HS RF: 0 isosorbide mononitrate 30 mg Tablet Extended Release 24 Hr 30 mg PO QAM RF: 0 amlodipine [Norvasc] 5 mg Tablet 5 mg PO QAM RF: 0 pantoprazole 40 mg Tablet,Delayed Release (Dr/Ec) 40 mg PO QAM RF: 0 metoprolol tartrate 50 mg Tablet 100 mg PO QAM RF: 0 metoprolol tartrate 50 mg Tablet 50 mg PO HS RF: 0 ergocalciferol (vitamin D2) [Vitamin D2] 50,000 unit Capsule 50,000 unit PO MONTHLY RF: 0 Discharge Orders: Discharge Order (Routine); Ordered 02/11/19 Ordered By: Dwayne Martines Admission Data Admit Date/Time: 02/09/19 10:20 Attending Provider: Dwayne Martines Admit Provider: Dwayne Martines Primary Care Provider: Sim Acosta Other Providers: Asa Salgado ; Antonio Buitrago Other Interventions: Discharge Summary Assessment (RN) Last Done: 02/11/19 13:46 DC Date/Time DO NOT enter until pt leaves facility: 02/11/19 14:06
[2019-02-21] MEDS ORDERED: ERGOCALCIFEROL 50,000 UNITS CAP PO SCH (09:00)
== END 2019-02-11 14:06 | disposition home or self-care (01) | DRG 472 ==
LOC: ASU 05:40 → 3E 10:20